=== PATIENT | male | born 1950 | race Caucasian/White ===

== ENCOUNTER → 2016-09-09 | Outpatient (CLI) | payer MEDICARE ==
--- NOTE | 2016-09-09 10:07 | P.STRESS ---
- Stress Test Note Stress Test Results/Findings: Exam Performed: stress echo exercise Exam Date: 09/09/16 Height: 6 ft Weight: 97.069 kg Protocol: timothy Stage: 2 Duration of Exercise: 6:04 Resting Heart Rate: 64 Resting Blood Pressure: 132/62 Maximum Achieved Heart Rate: 137 Maximum Achieved Blood Pressure: 154/63 85% PMHR: 132 100% PMHR: 155 METS: 7.7 Technologist Comment: Stress Test Results/Findings: Baseline EKG shows sinus rhythm normal axis normal intervals patient exercised on Timothy protocol for a total of 6 minutes achieving 7 mets 88% of predicted maximal heart rate without chest pain or diagnostic ST segment depression Baseline echo shows normal left ventricular size wall motion systolic function post exercise there is normal hyperdynamic response of all segments of myocardium noted Inclusions: Average exercise tolerance He does stress test by EKG criteria Negative stress echo
--- NOTE | 2016-09-09 11:46 | ECHOF ---
Referral Reason:E78.5 hyperlipidemia E11 type 2 dm MEASUREMENTS -------- HEIGHT: 182.9 cm WEIGHT: 97.1 kg BP: 121/70 IVSd: 1.0 cm (0.6 - 1.1) LVIDd: 3.8 cm (3.9 - 5.3) LVPWd: 1.3 cm (0.6 - 1.1) IVSs: 1.7 cm LVIDs: 1.6 cm LVPWs: 1.5 cm Ao Diam: 3.3 cm (2.0 - 3.7) AV Cusp: 2.1 cm (1.5 - 2.6) LA Diam: 3.7 cm (2.7 - 3.8) MV EXCURSION: 14.577 mm (> 18.000) MV EF SLOPE: 109 mm/s (70 - 150) EPSS: 0.6 cm MV E Oliver: 0.64 m/s MV DecT: 249 ms MV A Oliver: 0.58 m/s MV E/A Ratio: 1.09 RAP: 5.00 mmHg RVSP: 15.39 mmHg FINDINGS -------- Sinus rhythm. This was a technically good study. There is mild concentric left ventricular hypertrophy. Overall left ventricular systolic function is normal with, an EF between 55 - 60 %. The right ventricle is normal in size and function. The left atrium is normal in size. The right atrium is normal in size. The aortic valve is trileaflet, and appears structurally normal. No aortic stenosis or regurgitation. The mitral valve leaflets are mildly thickened. Mild mitral regurgitation is present. Mild tricuspid regurgitation present. The right ventricular systolic pressure, as measured by Doppler, is 15.39mmHg. Pulmonic valve appears structurally normal. The aortic root size is normal. The pericardium is normal. CONCLUSIONS -------- 1. Sinus rhythm. 2. Mild mitral regurgitation is present. 3. Mild tricuspid regurgitation present. 4. The right ventricular systolic pressure, as measured by Doppler, is 15.39mmHg. 5. Pulmonic valve appears structurally normal. 6. The aortic root size is normal. 7. The pericardium is normal. 8. This was a technically good study. 9. There is mild concentric left ventricular hypertrophy. 10. Overall left ventricular systolic function is normal with, an EF between 55 - 60 %. 11. The right ventricle is normal in size and function. 12. The left atrium is normal in size. 13. The right atrium is normal in size. 14. The aortic valve is trileaflet, and appears structurally normal. No aortic stenosis or regurgitation. 15. The mitral valve leaflets are mildly thickened. WOOD BOATBUILDER APPRENTICE: Jennifer Guerra RDCS
== END | disposition home or self-care (01) ==
LOC: RADECHMAIN 07:51
PROVIDERS: ATTEND Family Medicine
DX: I08.1 Rheumatic disorders of both mitral and tricuspid valves (principal); E78.5 Hyperlipidemia, unspecified; E11.9 Type 2 diabetes mellitus without complications
CPT/HCPCS: 93017; 93306; 93350

== ENCOUNTER 2017-04-19 08:01 | Day surgery (SDC) | payer MEDICARE ==
[2017-04-14 15:27] VITALS: BMI 30.5
[~2017-04-19 08:01] MED LIST: LACTATED RINGERS 1,000 ML IV SCH
[2017-04-19] MEDS ORDERED: LIDOCAINE 1% 20 ML VIAL (10MG/ML) FOR IV START INTRADERMA ONE (08:28)
[2017-04-19 08:35] VITALS: TEMP 97.8
[2017-04-19 08:47] LABS: Glucose,Whole Blood 92 mg/dL (75-99)
[2017-04-19] MEDS ORDERED: LIDOCAINE 1% INJ 10MG/ML (20 ML MDV) ONE (08:56)
[2017-04-19] MEDS ORDERED: PROPOFOL 10 MG/ML 20 ML VIAL IV ONE (08:56)
--- NOTE | 2017-04-19 09:00 | P.GSHP ---
History of Present Illness H&P Date: 04/19/17 Chief Complaint: GI bleed This is a 66-year-old male who presents today for EGD and colonoscopy. Patient was recently found to be Hemoccult blood positive Past Medical History Past Medical History: Diabetes Mellitus History of Any Multi-Drug Resistant Organisms: None Reported Past Surgical History: Cholecystectomy Additional Past Surgical History / Comment(s): VASECTOMY Past Anesthesia/Blood Transfusion Reactions: Motion Sickness Smoking Status: Never smoker - Past Family History Father Family Medical History: Cancer Additional Family Medical History / Comment(s): PANCREATIC CANCER Medications and Allergies Home Medications Medication Instructions Recorded Confirmed Type Cinnamon Bark [Cinnamon] 500 mg PO DAILY 04/14/17 04/19/17 History Insulin Aspart [NovoLOG Flexpen] 15 units SQ TID 04/14/17 04/19/17 History Insulin Glargine,Hum.rec.anlog 40 unit SQ DAILY 04/14/17 04/19/17 History [Basaglar Kwikpen U-100] Multivitamin [Men's Multi-Vitamin] 1 each PO DAILY 04/14/17 04/19/17 History metFORMIN HCL [Glucophage] 500 mg PO DAILY 04/14/17 04/19/17 History Allergies Allergy/AdvReac Type Severity Reaction Status Date / Time No Known Allergies Allergy Verified 04/14/17 14:56 Surgical - Exam Vital Signs Temp Pulse Resp BP Pulse Ox 97.8 F 72 16 128/76 95 04/19/17 08:33 04/19/17 08:33 04/19/17 08:33 04/19/17 08:33 04/19/17 08:33 - General well developed, no distress - Eyes PERRL - ENT normal pinna - Neck no masses - Respiratory normal expansion - Cardiovascular Rhythm: regular - Abdomen Abdomen: soft, non tender Assessment and Plan Assessment: GI bleed. We'll perform EGD and colonoscopy.
--- NOTE | 2017-04-19 09:25 | P.OP ---
Date of Procedure: 04/19/17 Preoperative Diagnosis: GI bleed Postoperative Diagnosis: Antral gastritis Cecal polyp Right colon polyp Diverticulosis Procedure(s) Performed: EGD Colonoscopy Anesthesia: MAC Surgeon: Paul Barrientos Pathology: other (Cecal polyp, right colon polyp) Condition: stable Disposition: PACU Description of Procedure: The patient's placed on the endoscopy table in the lateral position. He received IV sedation. The gastric was placed oropharynx passed in the esophagus and stomach. Scope was then placed through the pylorus. The first and second portion of the duodenum appeared normal. Scope was then brought back the antrum and this appeared mildly inflamed. A biopsies performed. The scope was retroflexed and remainder the stomach appeared normal. There is no significant hiatal hernia. The GE junction was at 40 cm. The distal esophagus appeared normal. The proximal esophagus. Normal. Scope was withdrawn for patient. Next digital rectal exam was performed which revealed a few internal hemorrhoids. The flexible colonoscope was then placed patient anus passed rotator entire colon. The ileocecal valve was visualized. In the cecum there was a small polyp seen was removed the forcep. Scope was then brought back and the right colon there was another peduncular polyp and this is removed with the snare. There was a few scattered diverticula in the right colon. The scope was then brought back the transverse colon and this appeared normal. Scope was brought back the descending and sigmoid colon was normal. Scope was then brought back the rectum and this was normal scope was withdrawn for patient.
[2017-04-19 09:38] VITALS: BP 145/78; PULSE 78; RESP 18
--- NOTE | 2017-04-21 07:46 | CDI ---
Date: 04/21/17 CDS/Flatwork Washer Name: Haily Cortés Phone: If any questions, call Kimberly Whitney Residential Interior Designer at [phone] Patient Name: Alfred Garrido Admit Date: 04/19/17 Discharge Date: 04/19/17 ATTENTION: The [facility] Coding Staff appreciate your assistance in clarifying documentation. Please respond to the clarification below the line at the bottom and electronically sign. The [facility] Coding staff will review the response and follow-up if needed. Please note: Queries are made part of the Legal Health Record. If you have any questions, please contact the Residential Interior Designer. Dear Dr. Barrientos, Please provide clarification as to what method the cecal polyp was removed. Please clarify if it was hot or cold biopsy forceps. Thank you for your kind consideration Cold biopsy forcep was used . PARISAD
== END 2017-04-19 10:03 | disposition home or self-care (01) ==
LOC: ORWHC2ENDO 08:01
PROVIDERS: ATTEND Surgery
DX: D12.0 Benign neoplasm of cecum (principal); D12.2 Benign neoplasm of ascending colon; K57.30 Diverticulosis of large intestine without perforation or abscess without bleeding; K64.8 Other hemorrhoids; K29.50 Unspecified chronic gastritis without bleeding; E11.9 Type 2 diabetes mellitus without complications; Z79.4 Long term (current) use of insulin
CPT/HCPCS: 88305; 45380; 45385; 43239; J2001; J2704

== ENCOUNTER → 2019-10-31 | Outpatient (CLI) | payer MEDICARE ==
--- NOTE | 2019-10-31 22:25 | MR ---
EXAMINATION TYPE: MR brain wo con DATE OF EXAM: 10/31/2019 COMPARISON: None HISTORY: MEMORY LOSS, TIA CONTRAST: Performed utilizing 0 mL intravenous Gadavist gadolinium contrast. TECHNIQUE: Multiplanar, multiecho imaging on a 3.0 Regina magnet is performed through the brain. Stud y is performed within 24 hours of arrival to the hospital. The craniovertebral junction is normal. The pituitary is normal. Normal vascular flow voids are aden dent. Diffusion-weighted imaging is performed. No abnormal hyperintensity is present to suggest an acute i ntracranial infarct or acute ischemic change. There are a few scattered punctate subcortical white matter changes slightly greater on the right int o the bilateral frontal lobes. These are nonspecific and slightly greater than expected for the patie nt age. Differential could include vasculitis, microvascular ischemic change. Somewhat more than typi rosalina for migraine headaches could be within the differential. Ventricles and sulci are appropriate for the patient age. Post thickening is through the maxillary sinuses and mastoid air cells appear clear. Some mucosal thi ckenings within ethmoid air cells and the right frontal sinus. IMPRESSIONS: 1. Scattered very tiny chronic appearing white matter ischemic type changes in subcortical white britney er greater in the frontal lobes. Partial differential diagnosis is discussed above. 2. No suspicious abnormality to account for apparent TIA and memory loss
== END | disposition home or self-care (01) ==
LOC: RADMRIMAIN 16:40
PROVIDERS: ATTEND Internal Medicine Geriatric Medicine
DX: R90.82 White matter disease, unspecified (principal); I67.82 Cerebral ischemia
CPT/HCPCS: 70551

== ENCOUNTER → 2019-11-01 | Outpatient (CLI) | payer MEDICARE ==
--- NOTE | 2019-11-01 10:57 | US ---
EXAMINATION TYPE: US carotid duplex BILAT DATE OF EXAM: 11/01/2019 COMPARISON: NONE CLINICAL HISTORY: 69-year-old male G45.9 TIA. Short term memory loss per patient; diabetic TECHNIQUE: Carotid duplex ultrasound examination. Indirect Doppler criteria was utilized. FINDINGS: EXAM MEASUREMENTS: RIGHT: Peak Systolic Velocity (PSV) cm/sec ----- Right CCA: 118.2 ----- Right ICA: 141.6 ----- Right ECA: 190.5 ICA/CCA ratio: 1.2 RIGHT: End Diastole cm/sec ----- Right CCA: 18.4 ----- Right ICA: 20.4 ----- Right ECA: 17.0 LEFT: Peak Systolic Velocity (PSV) cm/sec ----- Left CCA: 77.2 ----- Left ICA: 107.0 ----- Left ECA: 107.0 ICA/CCA ratio: 1.4 LEFT: End Diastole cm/sec ----- Left CCA: 15.7 ----- Left ICA: 35.8 ----- Left ECA: 13.7 VERTEBRALS (direction of flow): Right Vertebral: Antegrade Left Vertebral: Antegrade Rhythm: Normal [employer] Advanced Operator Maintainer notes: Mild to moderate intimal wall changes in bilateral carotid systems with abnormally elevated PSV in Right ICA and Right ECA at wall changes. IMPRESSION: 1. Measurement suggest a possible mild to moderate proximal right ICA stenosis. 2. No hemodynamically significant internal carotid artery stenosis on either side. Criteria for Assigning % of Stenosis / Diameter reduction (Estimation based on the indirect measurements of the internal carotid artery velocities (ICA PSV). 1. Normal (no stenosis)=ICA PSV < 125 cm/s: ratio < 2.0: ICA EDV<40 cm/s. 2. Less than 50% stenosis=ICA PSV < 125 cm/s: ratio < 2.0: ICA EDV<40 cm/s. 3. 50 to 69% stenosis=ICA PSV of 125 to 230 cm/s: ration 2.0 ? 4.0: ICA EDV 40-100 cm/s. 4. Greater than 70% stenosis to near occlusion= ICA PSV > 230 cm/s: ratio > 4.0: ICA EDV > 100 cm/s. 5. Near occlusion= ICA PSV velocities may be low or undetectable: variable ratio and ICA EDV. 6. Total occlusion=unable to detect flow.
--- NOTE | 2019-11-01 18:57 | ECHOF ---
Referral Reason:TIA G45.9, A fib I48.91 MEASUREMENTS -------- HEIGHT: 180.3 cm WEIGHT: 99.8 kg BP: RVIDd: 2.5 cm (< 3.3) IVSd: 0.8 cm (0.6 - 1.1) LVIDd: 4.2 cm (3.9 - 5.3) LVPWd: 1.1 cm (0.6 - 1.1) IVSs: 1.4 cm LVIDs: 1.6 cm LVPWs: 1.5 cm LAESV Index (A-L): 22.85 ml/m Ao Diam: 2.8 cm (2.0 - 3.7) AV Cusp: 1.9 cm (1.5 - 2.6) LA Diam: 3.8 cm (2.7 - 3.8) MV EXCURSION: 14.924 mm (> 18.000) MV EF SLOPE: 142 mm/s (70 - 150) EPSS: 0.5 cm MV E Oliver: 0.67 m/s MV DecT: 270 ms MV A Oliver: 0.56 m/s MV E/A Ratio: 1.20 RAP: 5.00 mmHg RVSP: 19.97 mmHg FINDINGS -------- Sinus rhythm. This was a technically adequate study. The left ventricular size is normal. Left ventricular wall thickness is normal. Overall left vent ricular systolic function is normal with, an EF between 55 - 60 %. The diastolic filling pattern is normal for the age of the patient 9.87. The right ventricle is normal in size. Normal LA size by volume 22+/-6 ml/m2. The right atrial size is normal. Interatrial and interventricular septum intact. The aortic valve is trileaflet, and appears structurally normal. No aortic stenosis or regurgitation. The mitral valve leaflets are mildly thickened. Mild mitral regurgitation is present. The tricuspid valve appears structurally normal. Trace tricuspid regurgitation present. Right demond tricular systolic pressure is normal at < 35 mmHg. There is no pulmonic regurgitation present. The aortic root size is normal. Normal inferior vena cava with normal inspiratory collapse consistent with estimated right atrial pre ssure of 5 mmHg. There is no pericardial effusion. CONCLUSIONS -------- 1. Left ventricular wall thickness is normal. 2. Overall left ventricular systolic function is normal with, an EF between 55 - 60 %. 3. The diastolic filling pattern is normal for the age of the patient 9.87 4. Normal LA size by volume 22+/-6 ml/m2. 5. The aortic valve is trileaflet, and appears structurally normal. No aortic stenosis or regurgitati on. 6. Mild mitral regurgitation is present. 7. Trace tricuspid regurgitation present. HOSPITAL MORTICIAN: Jennifer Guerra RDCS
== END | disposition home or self-care (01) ==
LOC: RADUSWWP 09:30
PROVIDERS: ATTEND Internal Medicine Geriatric Medicine
DX: G45.9 Transient cerebral ischemic attack, unspecified (principal); I48.91 Unspecified atrial fibrillation; I08.1 Rheumatic disorders of both mitral and tricuspid valves
CPT/HCPCS: 93306; 93880